=== PATIENT | female | born 1995 | race African-American/Black ===

== ENCOUNTER 2024-01-29 07:10 | Emergency (ER) | payer OTHER ==
[~2024-01-29] VITALS: Ht 165.1 cm; Wt 72.7 kg
[2024-01-29 07:25] VITALS: BP 96/59; PULSE 89; RESP 18; TEMP 98.9
[2024-01-29 08:37] LABS: APPEARANCE,URINE HAZY (CLEAR); BILIRUBIN,URINE NEGATIVE (NEGATIVE); COLOR,URINE YELLOW (YELLOW); GLUCOSE, URINE (UA) NEGATIVE (NEGATIVE); KETONES,URINE NEGATIVE (NEGATIVE); LEUKOCYTE ESTERASE ,URINE LARGE (NEGATIVE); NITRATE,URINE NEGATIVE (NEGATIVE); OCCULT BLOOD,URINE MODERATE (NEGATIVE); PROTEIN,URINE 30-70 mg/dL (NEGATIVE); SPECIFIC GRAVITIY, URINE 1.019 (1.003-1.030); UROBILINOGEN,URINE <=1.0 mg/dL (<=1.0)
[2024-01-29 08:42] LABS: BACTERIA,URINE Many /HPF (None Seen); SQUAMOUS EPITHELIAL CELL,UR Moderate /LPF (None Seen); WBC,URINE 26-50 /HPF (0-5)
[2024-01-29 08:43] LABS: HCG,QUAL URINE NEGATIVE (NEGATIVE)
[2024-01-29] MEDS ORDERED: NITR-75 PO (08:48)
[2024-01-29] MEDS ORDERED: PHEN-674 PO (08:48)
== END 2024-01-29 09:42 | disposition home or self-care (01) ==
LOC: EMS 07:13
DX: N39.0 Urinary tract infection, site not specified (principal)
CPT/HCPCS: 81001; 84703; 87086; 87186; 99283

== ENCOUNTER 2024-09-29 07:33 | Emergency (ER) | payer OTHER ==
[~2024-09-29] VITALS: Ht 160 cm; Wt 79.1 kg
[~2024-09-29 07:33] MED LIST: NITR-75 PO; PHEN-674 PO
[2024-09-29 07:36] VITALS: TEMP 98.4
[2024-09-29 07:43] LABS: COVID AG,FIA SOURCE NASAL SWAB
[2024-09-29 08:16] LABS: SARS-COV2 (COVID) ANTIGEN,FIA Negative (Negative)
[2024-09-29 08:17] LABS: INFLUENZA TYPE A NEGATIVE FOR TYPE A (NEGATIVE); INFLUENZA TYPE B NEGATIVE FOR TYPE B (NEGATIVE)
[2024-09-29] MEDS ORDERED: AMOX500C2 PO (08:40)
[2024-09-29] MEDS: OXYMETAZOLINE HCL 0.05% 15 ML NASAL SPRAY NASAL ONE (08:54)
[2024-09-29 08:57] VITALS: BP 122/74; PULSE 75; RESP 17; O2SAT 99
== END 2024-09-29 09:04 | disposition home or self-care (01) ==
LOC: EMS 07:33
DX: J01.90 Acute sinusitis, unspecified (principal); Z20.822 Contact with and (suspected) exposure to COVID-19
CPT/HCPCS: 71045; 87804; 99284

== ENCOUNTER 2025-02-09 09:01 | Emergency (ER) | payer OTHER ==
[~2025-02-09] VITALS: Ht 160 cm; Wt 78.6 kg
[~2025-02-09 09:01] MED LIST changes: +AMOX500C2 PO; -NITR-75 PO; -PHEN-674 PO
[2025-02-09 09:19] VITALS: BP 119/76; PULSE 75; RESP 18; TEMP 97.5; O2SAT 96
[2025-02-09 09:37] LABS: APPEARANCE,URINE CLEAR (CLEAR); BILIRUBIN,URINE NEGATIVE (NEGATIVE); COLOR,URINE LIGHT YELLOW (YELLOW); GLUCOSE, URINE (UA) NEGATIVE (NEGATIVE); KETONES,URINE NEGATIVE (NEGATIVE); LEUKOCYTE ESTERASE ,URINE NEGATIVE (NEGATIVE); NITRATE,URINE NEGATIVE (NEGATIVE); OCCULT BLOOD,URINE NEGATIVE (NEGATIVE); PROTEIN,URINE NEGATIVE (NEGATIVE); SPECIFIC GRAVITIY, URINE 1.014 (1.003-1.030); UROBILINOGEN,URINE <=1.0 mg/dL (<=1.0)
[2025-02-09 09:38] LABS: HCG,QUAL URINE NEGATIVE (NEGATIVE)
== END 2025-02-09 10:33 | disposition home or self-care (01) ==
LOC: EMS 09:01
DX: Z20.2 Contact with and (suspected) exposure to infections with a predominantly sexual mode of transmission (principal)
CPT/HCPCS: 81003; 84703; 87491; 87591; 99283